=== PATIENT | male | born 1990 | race Caucasian/White ===

== ENCOUNTER 2017-12-22 19:43 | Emergency (ER) | payer OTHER, SELFPAY ==
[2017-12-22 19:45] VITALS: BP 117/60; PULSE 73; RESP 16; TEMP 36.4; O2SAT 100; BMI 25.4
--- NOTE | 2017-12-22 19:50 | ED.RN ---
EMS REPORTS ONE EMESIS BRIGHT RED BLOOD IN ROUTE.
--- NOTE | 2017-12-22 20:31 | EKG12_ITS ---
Test Reason : SYNCOPE Blood Pressure : / mmHG Vent. Rate : 084 BPM Atrial Rate : 084 BPM P-R Int : 138 ms QRS Dur : 090 ms QT Int : 340 ms P-R-T Axes : 073 061 062 degrees QTc Int : 401 ms Normal sinus rhythm Normal ECG Confirmed by NOLBERTO GARCIA, CRISTINA ([id number]), assignment editor GIRMA FLORES ([id number]) on 12/26/2017 1:39:23 PM Referred By: JAYLYN Confirmed By:CRISTINA ARVIZU MD
[2017-12-22 20:47] LABS: Absolute Lymphocyte Count 3.74 X10^3/ul (0.83-4.51); Absolute Neutrophil Count 8.3 X10^3/uL (2.0-7.7); Basophil# 0.06 X10^3/uL; Basophil% 0.4 % (0-1); Eosinophil# 0.24 X10^3/uL; Eosinophils% 1.8 % (0-5); Hematocrit 40.4 % (40-54); Hemoglobin 13.7 g/dl (13.0-16.5); Lymphocyte # 3.74 X10^3/ul (4.0); Lymphocyte % 27.3 % (19-41); Mean Corp Hgb Conc 33.9 g/gl (32-36); Mean Corpuscular Hgb 29.3 pg (27.0-32.0); Mean Corpuscular Volume 86.5 fL (80-94); Mean Platelet Vol. 9.6 fl (6.2-12.0); Monocyte# 1.29 X10^3/uL; Monocyte% 9.4 % (0-10); Neutrophil # 8.32 X10^3/uL (2.7-7.7); Neutrophil % 60.8 % (47-70); Platelet Count 316 K/mm3 (150-450); RBC Distribution Width CV 12.8 % (11.6-14.6); RBC Distribution Width SD 40.1 fl (35.1-43.9); Red Blood Count 4.67 M/mm3 (4.6-6.2); White Blood Count 13.7 K/mm3 (4.4-11.0)
[2017-12-22 20:48] LABS: POSITIVE DIFFERENTIAL NO
[2017-12-22 20:49] LABS: POSITIVE COUNT NO; POSITIVE MORPHOLOGY NO
[2017-12-22 20:52] LABS: International Normalized Ratio 1.3; Partial Thromboplast Time 23.5 Seconds (24.1-36.2); Prothrombin Time (Protime)PT. 15.9 SECONDS (11.7-14.9)
[2017-12-22 21:01] LABS: Anion Gap 8 (5-15); BUN 32 mg/dL (7-18); Calcium,Total 8.5 mg/dL (8.5-10.1); Chloride 101 mmol/L (98-107); Creatinine, Serum 1.28 mg/dL (0.70-1.30); EST Glomerular Filtration Rate 72 mL/min (>60); Est Glom Filt Rate - Afr Amer 88 mL/min (>60); Estimated Creatinine Clearance 105.44 ml/min; Glucose 144 mg/dL (74-106); Potassium 4.4 mmol/L (3.5-5.1); Sodium Level 141 mmol/L (136-145)
[2017-12-22 21:08] VITALS: BP 113/79; PULSE 89; RESP 15; O2SAT 99
--- NOTE | 2017-12-22 21:45 | ED.RN ---
ATTEMPTED TO STAND PT TO BSC BECAUSE HE COULD NOT DEFECATE ON BED PACK. UPON STANDING PT BECAME TACHYCARDIC AND PALE. NOT DIZZY. PLACED IN TRENDELENBURG POSITION IN BED. AWARE. ORDERED TO PLACE NG MESFIN. PT STABILIZED WITHIN MINUTES OF POSITION CHANGE.
--- NOTE | 2017-12-22 22:02 | RAD_ITS ---
STUDY: X-RAY - ABDOMEN/PELVIS REASON FOR EXAM: Male, 27 years old. Gastric tube placement TECHNIQUE: A single AP view of the abdomen and pelvis was obtained. COMPARISON: None. FINDINGS: The lung bases are unremarkable. There is an unremarkable bowel gas pattern. There is no demonstrated free abdominal air. There is no demonstrated abnormality of the major organs. The soft tissues are unremarkable. The osseous structures are unremarkable. RAD/Abdomen Single View (Portable) IMPRESSION: No acute abnormalities are seen in the abdomen or pelvis. The tip of the gastric tube is in the expected location of the body of the stomach. Electronically Signed: Tonia Colon MD at 22:49 EDT Tel Direct: [phone], Service support ,
[2017-12-22] MEDS: 0.9% Normal Saline 1,000 ML 999 ML IV (22:05)
[2017-12-22] MEDS: Ondansetron 4 MG/2 ML Vial IV (22:10)
[2017-12-22 22:12] VITALS: BP 134/84; PULSE 98; RESP 18; O2SAT 98
[2017-12-22] MEDS: Ceftriaxone 1 GM/50 ML BAG IV (22:19)
[2017-12-22 22:30] LABS: Hematocrit 40.5 % (40-54); Hemoglobin 14.2 g/dl (13.0-16.5)
[2017-12-22 22:34] VITALS: PULSE 68; RESP 16; O2SAT 98
--- NOTE | 2017-12-22 22:36 | ED.RN ---
1:1 NURSING CARE FROM TIME OF NG PLACEMENT. PROTONIX GTT GIVEN TO [facility]. THEY DID WANT TO TAKE BLOOD PRODUCTS. FAMILY UPDATED ON PLAN OF CARE. PT STABLE AT TIME OF TRANSFER.
--- NOTE | 2017-12-22 22:58 | ED.RN ---
REPORT GIVEN TO PRABHJOT ANTONIO AT [facility].
--- NOTE | 2017-12-23 00:53 | ED.VISSUMM ---
- ER Visit Summary Date of Service: 12/23/17 Chief Complaint: Vomiting blood History of Present Illness: The patient is a 27 M presenting for evaluation secondary to hematemesis. Patient states that he has been dealing with a cough over the course of the last 5 days and a headache he has been taking some pxcw-hnd-hkszkhe remedies for this. Patient states that today he had some generalized malaise, and then suddenly this evening felt as if he needed to vomit and have a bowel movement the same time. Patient states that he vomited some blood, and then had a syncopal episode. Patient apparently after that had 2 or 3 more episodes of bloody emesis. This was witnessed by both paramedics and the patient's parents. Patient denies that he is having any sort of abdominal pain. Denies any sort of chest pain shortness of breath. Denies any fevers chills sweats or weight loss. Patient states that he does drink 2-3 times a week, last time he drank was on 's Day on the . He denies any frequent NSAID usage. Denies that he has been having any sort of dark tarry stools. Review of systems otherwise negative. Physical Examination: Vital signs within normal limits. Well-nourished male no acute distress. No evidence of conjunctival pallor, no scleral icterus. Moist mucous membranes no evidence of posterior pharyngeal drainage or blood in the posterior oropharynx. Heart regular rate and rhythm, lungs sounds clear to auscultation bilaterally. Abdomen soft nontender. Extremities nontender nonedematous. No skin rashes normal skin color. Remainder physical otherwise unremarkable. Test Results: CBC within normal limits heme globin 13, chemistry unremarkable, INR and PTT unremarkable Emergency Department Course and Treatment: Patient presented with complaints of possible upper GI bleed. IV was established laboratory studies were obtained. While the patient was in the emergency department he had a large melanotic stool, so NG was immediately placed with the assistance of Afrin and blood was immediately obtained in the suction tubing and collection canister. Patient had another near syncopal episode, and was placed in Trendelenburg position. Patient was typed and crossmatched for 2 units, and 2 units of trauma blood were ordered. Patient was started on Protonix and Rocephin. I discussed patient's case with Dr. Bowman who does not do UGI bleeds. Therefore the decision was made to transfer the patient. I initially contacted [facility] who did not have bed capacity, so [facility] was contacted. They did have bed capacity and ultimately accepted the patient. [facility] was contacted, and the patient was transferred in guarded condition. Disposition: Transfer Impression: 1. Upper GI bleed Critical care time 45 minutes This note was generated with [employer] dictation software. It may contain incorrect words, spelling, and punctuation that were not noted in review of the chart prior to signing ED Disposition - Plan for ED Patient: Disposition: [facility] Chief Complaint: Nausea/Vomiting Referrals: Care Physician,No Primary [Primary Care Provider] -
--- NOTE | 2017-12-23 00:57 | ED.DCSUM_ITS ---
- ER Visit Summary Date of Service: 12/23/17 Chief Complaint: Vomiting blood History of Present Illness: The patient is a 27 M presenting for evaluation secondary to hematemesis. Patient states that he has been dealing with a cough over the course of the last 5 days and a headache he has been taking some over- the-counter remedies for this. Patient states that today he had some generalized malaise, and then suddenly this evening felt as if he needed to vomit and have a bowel movement the same time. Patient states that he vomited some blood, and then had a syncopal episode. Patient apparently after that had 2 or 3 more episodes of bloody emesis. This was witnessed by both paramedics and the patient's parents. Patient denies that he is having any sort of abdominal pain. Denies any sort of chest pain shortness of breath. Denies any fevers chills sweats or weight loss. Patient states that he does drink 2-3 times a week, last time he drank was on 's Day on the . He denies any frequent NSAID usage. Denies that he has been having any sort of dark tarry stools. Review of systems otherwise negative. Physical Examination: Vital signs within normal limits. Well-nourished male no acute distress. No evidence of conjunctival pallor, no scleral icterus. Moist mucous membranes no evidence of posterior pharyngeal drainage or blood in the posterior oropharynx. Heart regular rate and rhythm, lungs sounds clear to auscultation bilaterally. Abdomen soft nontender. Extremities nontender nonedematous. No skin rashes normal skin color. Remainder physical otherwise unremarkable. Test Results: CBC within normal limits heme globin 13, chemistry unremarkable, INR and PTT unremarkable Emergency Department Course and Treatment: Patient presented with complaints of possible upper GI bleed. IV was established laboratory studies were obtained. While the patient was in the emergency department he had a large melanotic stool , so NG was immediately placed with the assistance of Afrin and blood was immediately obtained in the suction tubing and collection canister. Patient had another near syncopal episode, and was placed in Trendelenburg position. Patient was typed and crossmatched for 2 units, and 2 units of trauma blood were ordered. Patient was started on Protonix and Rocephin. I discussed patient's case with Dr. Bowman who does not do UGI bleeds. Therefore the decision was made to transfer the patient. I initially contacted [facility][1] who did not have bed capacity, so [facility] was contacted. They did have bed capacity and ultimately accepted the patient. [facility] was contacted, and the patient was transferred in guarded condition. Disposition: Transfer Impression: 1. Upper GI bleed Critical care time 45 minutes This note was generated with [employer] dictation software. It may contain incorrect words, spelling, and punctuation that were not noted in review of the chart prior to signing ED Disposition - Plan for ED Patient: Disposition: [facility] Chief Complaint: Nausea/Vomiting Referrals: Care Physician,No Primary [Primary Care Provider] -
== END 2017-12-22 22:32 | disposition short-term general hospital (02) ==
PROVIDERS: Emergency Provider Emergency Medicine
DX: K92.0 Hematemesis (principal); R55 Syncope and collapse
CPT/HCPCS: 74018; 80048; 84484; 85014; 85018; 85025; 85610; 85730; 86850; 86900; 93005; 96374; 99285; J7030; A4216; J2405; J3490